=== PATIENT | female | born 1975 | race Two or more races ===

== ENCOUNTER 2021-01-08 23:00 | Emergency (ER) | payer MEDICAID, SELFPAY ==
[2021-01-08 23:19] VITALS: BP 129/79; PULSE 73; RESP 16; TEMP 36.2; O2SAT 99; BMI 37.3
--- NOTE | 2021-01-08 23:51 | ED_ITS ---
HPI - Extremity Problem General Chief complaint: Extremity Injury, Upper Stated complaint: Nail injury Time Seen by Provider: 01/08/21 23:32 Source: patient Mode of arrival: ambulatory Limitations: no limitations History of Present Illness HPI Narrative: 45-year-old female here with complaints of left index finger pain. 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 She feels like the nail lifted and she had some bleeding at the site after. She does have acrylic nails in place Tetanus is up-to-date Related Data Allergies Allergy/AdvReac Type Severity Reaction Status Date / Time No Known Allergies Allergy Verified 01/08/21 23:19 Review of Systems Review of Systems: Yes all other systems are reviewed and are negative Constitutional: Constitutional: Reports no additional constitutional complaints, Denies body ache(s), Denies chills, Denies fever(s), Denies headache(s) and Denies weakness Eyes: Eyes: Reports no additional eye complaints and Denies change in vision ENT: Reports system reviewed and no additional complaints, except as documented, Denies dizziness, Denies headache(s), Denies nasal congestion, Denies nasal discharge and Denies neck pain Cardiovascular: Cardiovascular: Reports no additional cardiovascular complaints, Denies chest pain, Denies leg edema and Denies dyspnea Respiratory: Respiratory: Reports no additional respiratory complaints, Denies cough and Denies dyspnea Gastrointestinal: Gastrointestinal: Reports no additional gastrointestinal complaints, Denies abdominal pain, Denies diarrhea, Denies nausea and Denies vomiting Genitourinary: Genitourinary: Reports no additional female genitourinary complaints and Denies urinary incontinence Musculoskeletal: Musculoskeletal: Reports no additional musculoskeletal complaints, Denies back pain, Denies arthralgias, Denies joint swelling, Denies neck pain, Denies numbness and Denies tingling Integumentary/Breasts: Skin/Breast: Reports system reviewed and no additional complaints, except as docu and Denies rash Neurologic: Reports system reviewed and no additional complaints, except as documented, Denies Abnormal speech present, Denies dizziness, Denies he adache(s), Denies numbness, Denies tingling and Denies weakness PMFSH Past Medical History Attestation statement: The following information was validated with the patient. Source: old records reviewed and nursing notes reviewed Social History Social History Patient : No Physical Exam Vital Signs: Vital Signs: Last Vital Signs Temp 97.2 F 01/08/21 23:19 Pulse 73 01/08/21 23:19 Resp 16 01/08/21 23:19 BP 129/79 01/08/21 23:19 Pulse Ox 99 01/08/21 23:19 Body Mass Index 37.3 Const: General: cooperative, healthy appearing, comfortable and no acute distress Orientation/consciousness: patient oriented x3 Limitations: no limitations HENMT: Head: Yes normal to inspection Ears: hearing grossly normal bilaterally General nose exam: Normal external nose present Face and sinus: Yes normal facial exam Mouth: Normal oral and palatal mucosa present Throat: Yes posterior oropharynx normal Eyes: General: appearance normal, both eyes and all related structures Pupils: Equal, round and reactive pupils present Neck: Neck: Yes normal visual inspection Chest: Chest palpation & inspection: normal inspection of the chest Resp: Effort & Inspection: normal respiratory effort Auscultation: clear to auscultation bilaterally Cardio: Rate: regular rate Rhythm: regular rhythm Peripheral pulses: Peripheral pulses 2+ throughout GI: Inspection: Yes normal to inspection Palpation (GI): Soft to palpation and nontender Auscultation: normal bowel sounds Back/Spine/Pelvis: Thoracic/Lumbar Spine: thoracic and lumbar spine normal to inspection Skin: General skin exam: no rashes or lesions noted Neuro: General: patient oriented x3, no focal motor deficits and normal sensation to monofilament Cranial nerves: Yes Equal, round and reactive pupils present Cognition (Neuro): normal cognition Speech: No Abnormal speech present Gait exam (Neuro): Normal gait present Motor exam (neuro): 5/5 motor strength present throughout Extrem: Other: Partial nail avulsion to the left index finger Bleeding is controlled Full range of motion of the index General: Yes normal to inspection Course Course Course Narrative: Partial nail of the lotion to the left index finger. The finger was soaked in Betadine and normal saline and topical antibiotic ointment with a finger splint were applied. Shared decision making at the bedside about nail removal versus leaving in place. We decided to leave it in place. Reviewed worrisome signs and symptoms of when to return to the emergency department. Comfortable discharge home. MDM - Extremity (Nontraumatic) Medical Records Attestation: I reviewed the patient's medical records. Lab Data Attestation: I reviewed the patient's lab results. Discharge Plan Discharge Clinical Impression: Avulsion of nail Patient Disposition: Home, Self-Care Instructions: Nail Avulsion (ED) Additional Instructions: the nail is partially avulsed (meaning loose). We have decided to leave it in place. With time your nail will grow out Trim the nail at home. Bandage in place Referrals: Physician,Unknown [Primary Care Provider] - 2 days
== END 2021-01-09 00:31 | disposition home or self-care (01) ==
LOC: HO.ED 01-09 00:01
PROVIDERS: Emergency Provider Emergency Medicine Emergency Medical Services
DX: S67.191A Crushing injury of left index finger, initial encounter (principal); M79.642 Pain in left hand; Y29.XXXA Contact with blunt object, undetermined intent, initial encounter; Y93.9 Activity, unspecified; Y92.9 Unspecified place or not applicable; Y99.9 Unspecified external cause status
CPT/HCPCS: 29130; 99283

== ENCOUNTER 2021-08-08 19:40 | Emergency (ER) | payer OTHER, SELFPAY ==
[2021-08-08 20:04] VITALS: PULSE 69; RESP 16; TEMP 36.6; O2SAT 97; BMI 37.3
--- NOTE | 2021-08-08 20:55 | ED.EAR ---
HPI - Ear Problem General Chief complaint: Ear Problems Stated complaint: ear pain, migraine Time Seen by Provider: 08/08/21 20:20 Source: patient Mode of arrival: ambulatory Limitations: no limitations History of Present Illness HPI Narrative: Patient comes to the emergency room complaining of right-sided ear drainage and pain. Patient states it has been going on for about 3 weeks to a month. Patient states that she is able to hear, but now she cannot tolerate the ear pain. Patient denies fever chills. Addition is nearly normal, slightly reduced. Has no issues with her left ear, no sore throat, no recent UTIs. Related Data Previous Rx's Medication Instructions Recorded clobetasol 0.05 % lotion 1 appl TOPICAL BID 7 Days #59 ml 05/17/21 prednisone 20 mg tablet 20 mg PO DAILY 5 Days #5 tab 05/17/21 amoxicillin 500 mg-potassium 1 tab PO BID #20 tab 08/08/21 clavulanate 125 mg tablet (Augmentin) ibuprofen 600 mg tablet 600 mg PO TID PRN #14 tab 08/08/21 [id number] 3.3 4 drp OTIC (EAR) RIGHT TID #10 ml 08/08/21 mg-3 mg-10 mg-0.5 mg/mL ear drops,susp (Cortisporin-TC) Allergies Allergy/AdvReac Type Severity Reaction Status Date / Time No Known Allergies Allergy Verified 05/17/21 14:34 Review of Systems Review of Systems: Constitutional : No Weight loss, No Fever, No Chills, No Night Sweats, No Fatigue, No Malaise ENT/Mouth : Complaining of right-sided ear pain, drainage and swelling. Decreased hearing. No Nasal Congestion, No Sinus Pain, No Hoarseness, No sore throat, No Rhinorrhea, No Swallowing Difficulty Eyes: No Eye Pain, No Swelling, No Redness, No Foreign Body, No Discharge, No Vision Changes Cardiovascular : No Chest Pain, No SOB, No Dyspnea on Exertion, No Orthopnea, No Edema, No Palpitations Respiratory : No Cough, No Sputum, No Wheezing, No Smoke Exposure, No Dyspnea Gastrointestinal : No Nausea, No Vomiting, No Diarrhea, No Constipation, No abdominal Pain, No Hematochezia, No Melena Genitourinary : no irregular bleeding, No Dysuria, No Urinary Frequency, No Hematuria, No Urinary Incontinence, No Urgency, No Flank Pain, No Urinary Flow Changes, No Hesitancy Musculoskeletal : No joint pain, No Myalgias, No Joint Swelling Skin : No Skin Lesions, No rash Neuro : No Weakness, No Numbness, No Paresthesias, No Loss of Consciousness, No Dizziness, No Headache Psych : No Anxiety/Panic, No Depression, No SI/HI/AH/VH, No Social Issues, Heme/Lymph: No Bruising, No Bleeding,No Lymphadenopathy Endocrine : No Polyuria, No Polydipsia, No Temperature Intolerance PMFSH Social History Social History Advance Directives: No Physical Exam Vital Signs: Vital Signs: Last Vital Signs Temp 97.8 F 08/08/21 20:04 Pulse 69 08/08/21 20:04 Resp 16 08/08/21 20:04 Pulse Ox 97 08/08/21 20:04 BMI result Body Mass Index 37.3 Const: Other: Appearance: Alert. Oriented X3. No acute distress. Eyes: Pupils equal, round and reactive to light. ENT: Pharynx normal. Right ear is swollen, the tympanic membrane cannot be visualized due to the swelling of the ear canal. No discharge noted. Patient is able to hear of the right ear. Left ear within normal limits. Patient has no mastoid bone tenderness on either side. Neck: Normal inspection. Neck supple. No lymph nodes noted. No crepitus CVS: Normal heart rate and rhythm. Pulses normal. Normal S1 and S2 Respiratory: No respiratory distress. Breath sounds normal. No Wheezing. No rales Abdomen: Soft and nontender. No rigidity. No distention. Skin: Skin warm and dry. Normal skin color. Normal skin turgor. Extremities: No lower extremity edema. No Lacerations. No Rash Neuro: Oriented X 3. No motor deficit. No sensory deficit. Moving all extremities. No slurred speech. CN 2 through 12 grossly intact Psych: calm, cooperative, normal affect Course Course Course Narrative: I discussed the physical exam with the patient, patient will be prescribed oral antibiotics and ear drops. Discharge Plan Discharge Clinical Impression: Otitis media Patient Disposition: Home, Self-Care Instructions: Ear Infection (ED) Additional Instructions: Please follow-up with your primary care physician tomorrow. If you have any worsening or new symptoms, please return to the emergency room or call 911 Prescriptions: New amoxicillin-pot clavulanate [Augmentin] 500-125 mg tablet 1 tab PO BID Qty: 20 0RF Cortisporin-TC 3.3-3-10-0.5 mg/mL drops,suspension 4 drp otic (ear) right TID Qty: 10 0RF ibuprofen 600 mg tablet 600 mg PO TID PRN (Reason: fever or pain) Qty: 14 0RF No Action clobetasol 0.05 % lotion 1 appl topical BID 7 Days Qty: 59 0RF Rx Instructions: To affected areas twice a day prednisone 20 mg tablet 20 mg PO DAILY 5 Days Qty: 5 0RF
== END 2021-08-08 21:14 | disposition home or self-care (01) ==
PROVIDERS: Emergency Provider Emergency Medicine
DX: H66.91 Otitis media, unspecified, right ear (principal); H92.01 Otalgia, right ear; Z79.899 Other long term (current) drug therapy
CPT/HCPCS: 99283